=== PATIENT | female | born 1960 | race African-American/Black ===

== ENCOUNTER 2016-09-16 13:40 | Emergency (ER) | payer OTHER ==
[~2016-09-16] VITALS: Ht 167.6 cm; Wt 72.6 kg
[~2016-09-16 13:40] MED LIST: HYDR-971 PO
[2016-09-16 14:01] VITALS: BP 126/84
[2016-09-16] MEDS ORDERED: SUMAtriptan. 6 MG/0.5 ML VIAL SQ ONE (14:30)
[2016-09-16] MEDS ORDERED: KETOROLAC TROMETHAMINE 60 MG/2 ML INJ. IM ONE (14:30)
--- NOTE | 2016-09-16 14:49 | PHYS DOC ---
Past Medical History Past Medical History: Arthritis, Migraines, Other Additional Past Medical Histor: PTSD Past Surgical History: , Hysterectomy Additional Information: quit smoking 1992 Alcohol Use: None Drug Use: None Adult General Chief Complaint Chief Complaint: HEADACHE HPI HPI Patient is a 56 year old female who presents with migraine headache. She reports generalized aching/throbbing headache today, associated with photophobia /phonophobia. Not sudden in onset, not the worst headache of her life, typical of usual migraine headache. She denies fevers/chills, vision changes, vomiting , extremity numbness/weakness. Previous ED visits for headache, improvement with toradol & imitrex. She usually goes to the [facility] & she has a PCP there. Review of Systems Review of Systems Constitutional: Denies fever or chills Eyes: Denies change in visual acuity HENT: Denies nasal congestion or sore throat Respiratory: Denies cough or shortness of breath Cardiovascular: Denies chest pain GI: Denies abdominal pain, nausea, vomiting Musculoskeletal: Denies back pain or joint pain Integument: Denies rash Neurologic: Reports headache, denies focal weakness or sensory changes Current Medications Current Medications Current Medications Medications (Trade) Dose Ordered Sig/Kodak Start Time Stop Time Status Last Admin Dose Admin Ketorolac Tromethamine (Toradol Im) 60 mg 1X ONCE 09/16/16 14:30 09/16/16 14:31 DC 09/16/16 14:30 60 MG Sumatriptan Succinate (Imitrex) 6 mg 1X ONCE 09/16/16 14:30 09/16/16 14:31 DC 09/16/16 14:30 6 MG Allergies Allergies Allergies Coded Allergies Type Severity Reaction Last Updated Verified No Known Drug Allergies 05/17/16 No Physical Exam Physical Exam Constitutional: Well developed, well nourished, no acute distress, non-toxic appearance. resting comfortably in a darkened room HENT: Normocephalic, atraumatic, bilateral external ears normal, oropharynx moist, nose normal. Eyes: PERRLA, EOMI, conjunctiva normal, no discharge. Neck: supple, no stridor. no nuchal rigidity Cardiovascular: RRR, no murmurs, no edema. Lungs & Thorax: LCTAB, no wheezing, no respiratory distress. Abdomen: soft, nontender, nondistended. Skin: Warm, dry, no erythema, no rash. Back: No tenderness. Extremities: No tenderness, no edema. Neurologic: Alert and oriented X 3, CN2-12 grossly intact, symmetric strength/ sensation to UE & LE, no focal deficits noted. Psychologic: Affect normal, judgement normal, mood normal. Current Patient Data Vital Signs Vital Signs Date Time Temp Pulse Resp B/P (MAP) Pulse Ox O2 Delivery O2 Flow Rate FiO2 09/16/16 14:01 98.1 72 16 98 Room Air 98.1 EKG EKG [] Radiology/Procedures Radiology/Procedures [] Course & Med Decision Making Course & Med Decision Making Pertinent Labs and Imaging studies reviewed. (See chart for details) The patient presents with usual migraine headache, requests toradol & imitrex. Meds were provided & she felt better. Recommend rest, PO hydration, follow up with PCP in 2-3 days for migraine management. Come back for sudden onset severe headache or worst headache of her life, focal neuro deficit, any otherwise worsening condition. Discharged home in stable & improved condition. [] Dragon Disclaimer Dragon Disclaimer This electronic medical record was generated, in whole or in part, using a voice recognition dictation system. Departure Departure Impression: Primary Impression: Migraine Disposition: 01 HOME, SELF-CARE Condition: STABLE Referrals: MARCEL GREENFIELD APRN (PCP) Patient Instructions: Migraine Headache, [id number] Additional Instructions: You were seen in the emergency department today for migraine headache. Symptoms improved with treatment here. Please follow-up with primary care physician for ongoing management. Come back for sudden onset of severe headache, trouble moving arms or legs, any otherwise worsening condition. GENE CANTU MD September 16, 2016 14:48
== END 2016-09-16 14:55 | disposition home or self-care (01) ==
LOC: ER 13:40
DX: G43.909 Migraine, unspecified, not intractable, without status migrainosus (principal); F43.10 Post-traumatic stress disorder, unspecified; M19.90 Unspecified osteoarthritis, unspecified site; Z87.891 Personal history of nicotine dependence
CPT/HCPCS: 96372; 99284; J1885; J3030

== ENCOUNTER 2016-10-18 13:14 | Emergency (ER) | payer OTHER ==
[2016-10-18 14:05] VITALS: BP 113/69
--- NOTE | 2016-10-18 14:11 | PHYS DOC ---
Past Medical History Past Medical History: Arthritis, Migraines, Other Additional Past Medical Histor: PTSD Past Surgical History: , Hysterectomy Alcohol Use: None Drug Use: None Adult General Chief Complaint Chief Complaint: HEADACHE HPI HPI Patient is a 56 year old female presents to the emergency department stating that she has a lot of things to do she is here to get her Toradol shot in her Imitrex shot or her migraine headache. Patient states that she has migraine headaches in which she has been here 2 times before and received shots for. Patient states that this is an atypical type headache is different than the last time as is his only lasted 2 days and the pain has not responded to Tylenol. Patient states that she has photophobia/photophobia. She states that the pain is on the right side of her head as opposed to what she thinks the last time was her entire head. She states that it's a throbbing type pain. Patient states she has neurologist at the [facility] she states that they have not provided her with any medications in which she can take at home. She states that she does not like the medications that they provide her. Patient states that she drove herself here to the emergency department and she would like to get her shots so she can leave. Review of Systems Review of Systems Constitutional: Denies fever or chills [] Eyes: Denies change in visual acuity, redness, or eye pain [] HENT: Denies nasal congestion or sore throat [] Respiratory: Denies cough or shortness of breath [] Cardiovascular: No additional information not addressed in HPI [] GI: Denies abdominal pain, nausea, vomiting, bloody stools or diarrhea [] : Denies dysuria or hematuria [] Musculoskeletal: Denies back pain or joint pain [] Integument: Denies rash or skin lesions [] Neurologic: Reports headache, denies focal weakness or sensory changes [] Endocrine: Denies polyuria or polydipsia [] Current Medications Current Medications Current Medications Medications (Trade) Dose Ordered Sig/Kodak Start Time Stop Time Status Last Admin Dose Admin Ketorolac Tromethamine (Toradol Im) 60 mg 1X ONCE 10/18/16 14:45 10/18/16 14:46 10/18/16 14:38 60 MG Sumatriptan Succinate (Imitrex) 6 mg 1X ONCE 10/18/16 14:45 10/18/16 14:46 10/18/16 14:39 6 MG Allergies Allergies Allergies Coded Allergies Type Severity Reaction Last Updated Verified No Known Drug Allergies 05/17/16 No Physical Exam Physical Exam Constitutional: Well developed, well nourished, no acute distress, non-toxic appearance. [] HENT: Normocephalic, atraumatic, bilateral external ears normal, oropharynx moist, no oral exudates, nose normal. [] Eyes: PERRLA, EOMI, conjunctiva normal, no discharge. [] Neck: Normal range of motion, no tenderness, supple, no stridor. [] Cardiovascular:Heart rate regular rhythm, no murmur [] Lungs & Thorax: Bilateral breath sounds clear to auscultation [] Skin: Warm, dry, no erythema, no rash. [] Back: No tenderness Extremities: No tenderness, no cyanosis, no clubbing, ROM intact, no edema. [] Neurologic: Alert and oriented X 3, normal motor function, normal sensory function, no focal deficits noted. Cranial nerves II through XII intact. Strength noted bilaterally. Patient able to do finger to nose with minimal difficulty. Psychologic: Affect normal, judgement normal, mood normal. [] Current Patient Data Vital Signs Vital Signs Date Time Temp Pulse Resp B/P (MAP) Pulse Ox O2 Delivery O2 Flow Rate FiO2 10/18/16 14:05 98.2 66 20 98 Room Air 98.2 EKG EKG [] Radiology/Procedures Radiology/Procedures [][facility] [address] [place], [place] [id number] IMAGING REPORT Signed PATIENT: YAMILE ENCARNACION ACCOUNT: [id number] : 1960 LOCATION: ER AGE: 56 SEX: F EXAM STATUS: REG ER ORD. PHYSICIAN: DARIEN OLIVAS [employer] REASON: headache right side head atypical migraine pain PROCEDURE: CT HEAD WO CONTRAST CT of the head without contrast, 10/18/2016: History: Headache, atypical migraine The ventricles are within normal limits in size. There is no shift of the midline structures. There is no evidence of acute intracranial hemorrhage or mass effect. IMPRESSION: No acute intracranial abnormality is detected. PQRS Compliance Statement: One or more of the following individualized dose reduction techniques were utilized for this examination: 1. Automated exposure control 2. Adjustment of the mA and/or kV according to patient size 3. Use of iterative reconstruction technique DICTATED and SIGNED BY: JOYCE MALDONADO MD DATE: 10/18/16 1425 CC: DARIEN OLIVAS APRN; MARCEL GREENFIELD APRN; NON,STAFF ~ Course & Med Decision Making Course & Med Decision Making Pertinent Labs and Imaging studies reviewed. (See chart for details) She is requesting Toradol and Imitrex for her migraine headache. Patient states that the headache is an atypical type headache. She states that it is different than the last time she was here. She continues to state she needs to get her air and some things done she has think she needs to do today she doesn't want to stay here in the hospital. Explained to patient we needed to get a CT scan as this is an atypical headache is what she states mentioned. Patient agrees with CT scan. Spoke with patient as imitrex can be provided on an outpatient basis as well as toradol. Recommended patient to talk to her neurologist in regards to medication. CT scan was negative. Patient was provided with Toradol and Imitrex. She'll be discharged home in stable condition with recommendations to follow-up with her neurologist in regards for outpatient medication for migraines. Patient was provided with signs and symptoms to return back to emergency department. Patient agrees with discharge instructions treatment regimens and follow-up recommendations. [] Dragon Disclaimer Dragon Disclaimer This electronic medical record was generated, in whole or in part, using a voice recognition dictation system. Departure Departure Impression: Primary Impression: Migraine Disposition: 01 HOME, SELF-CARE Condition: STABLE Referrals: MARCEL GREENFIELD APRN (PCP) Patient Instructions: Recurrent Migraine Headache, [id number] Additional Instructions: Interested in quiet dark environment. Avoid watching any TV or any type of electronic devices. As this will create her headache to become worse. You may also try cool packs to your head to help with pain and discomfort. Follow-up with your neurologist for further pain control for your migraine headaches. Return back to emergency department for signs and symptoms that become worse. DARIEN OLIVAS APRN Oct 18, 2016 14:11
--- NOTE | 2016-10-18 14:29 | RAD ---
CT of the head without contrast, 10/18/2016: History: Headache, atypical migraine The ventricles are within normal limits in size. There is no shift of the midline structures. There is no evidence of acute intracranial hemorrhage or mass effect. IMPRESSION: No acute intracranial abnormality is detected. PQRS Compliance Statement: One or more of the following individualized dose reduction techniques were utilized for this examination: 1. Automated exposure control 2. Adjustment of the mA and/or kV according to patient size 3. Use of iterative reconstruction technique
[2016-10-18] MEDS ORDERED: SUMAtriptan. 6 MG/0.5 ML VIAL SQ ONE (14:45)
[2016-10-18] MEDS ORDERED: KETOROLAC TROMETHAMINE 60 MG/2 ML INJ. IM ONE (14:45)
== END 2016-10-18 14:50 | disposition home or self-care (01) ==
LOC: ER 13:14
DX: G43.909 Migraine, unspecified, not intractable, without status migrainosus (principal); M19.90 Unspecified osteoarthritis, unspecified site; Z90.710 Acquired absence of both cervix and uterus
CPT/HCPCS: 70450; 96372; 99284; J1885; J3030